=== PATIENT | male | born 1990 | race Two or more races ===

== ENCOUNTER 2017-11-04 18:31 | Emergency (ER) | payer SELFPAY ==
[2017-11-04] MEDS: metroNIDAZOLE 500 MG TABLET PO (19:02)
[2017-11-04] MEDS: AZITHROMYCIN 250 MG TABLET. PO (19:03)
[2017-11-04] MEDS: cefTRIAXone IM 250 MG VIAL IM (19:03)
== END 2017-11-04 19:30 | disposition home or self-care (01) ==
LOC: ER 19:30
DX: Z20.2 Contact with and (suspected) exposure to infections with a predominantly sexual mode of transmission (principal)
CPT/HCPCS: 96372; 99283; J0696; Q0144